=== PATIENT | male | born 1945 | race Caucasian/White ===

== ENCOUNTER → 2018-04-22 07:28 | Outpatient (CLI) | payer OTHER, SELFPAY ==
[2018-04-22 08:45] LABS: Vitamin D 25 Hydroxy (D3) 31.9 ng/mL (30.0-100.0)
[2018-04-22 09:39] LABS: HEMOLYSIS < 15 (0-50); Prostate Specific Antigen Scrn 0.483 ng/mL (0.1-4.0)
[2018-04-22 09:41] LABS: BUN Creatinine Ratio 17.5 (6-22); Blood Urea Nitrogen 14 mg/dL (9-20); Calcium 9.8 mg/dL (8.4-10.2); Carbon Dioxide 26 mmol/L (22-32); Chloride 105 mmol/L (98-107); Cholesterol 231 mg/dL (140-199); Estimated Glomerular Filt Rate > 60.0 mL/min (>60); Glucose 89 mg/dL (80-110); HDL Cholesterol 81 mg/dL (40-60); LDL Cholesterol Calculated 134 mg/dL (<100); Potassium 4.5 mmol/L (3.4-5.1); Sodium 140 mmol/L (137-145); Triglycerides 82 mg/dL (35-150)
== END ==
PROVIDERS: Visit Provider Internal Medicine
DX: Z00.00 Encounter for general adult medical examination without abnormal findings (principal); E55.9 Vitamin D deficiency, unspecified; Z12.5 Encounter for screening for malignant neoplasm of prostate
CPT/HCPCS: 36415; 80048; 80061; 82306; G0103

== ENCOUNTER → 2018-06-20 09:53 | Outpatient (CLI) | payer OTHER, SELFPAY ==
[2018-06-24 14:43] LABS: 5-HIAA, Urine 23.8 mg/24 h (< OR = 6.0); Total Volume 2500 mL
== END ==
PROVIDERS: Family Provider Internal Medicine; PCP Internal Medicine; Visit Provider Internal Medicine Hematology & Oncology
DX: C7A.019 Malignant carcinoid tumor of the small intestine, unspecified portion (principal)
CPT/HCPCS: 82570; 83497

== ENCOUNTER → 2018-10-18 09:13 | Outpatient (CLI) | payer OTHER, SELFPAY ==
--- NOTE | 2018-10-18 | DI.MRI.S_ITS ---
PROCEDURE: MR ABDOMEN WO/W CON INDICATIONS: MALIGNANT CARNIOD TUMOR UNSPECIFIED SITE TECHNIQUE: Coronal HASTE, axial 2D FLASH in- and [id number]; axial breath-hold T2 FSE. Dynamic axial VIBE during the administration of contrast; post-contrast coronal VIBE or 2D FLASH with fat saturation from the hepatic dome to the iliac crests. Optional diffusion weighted imaging and ADC may be performed. COMPARISON: [facility], CT, IVP (ABD & PEL WWO CONTRAST), 09/09/2015, 15:10. [facility], MR, ABDOMEN W&WO CONTRAST, 03/23/2016, 10:16. FINDINGS: Image quality: Excellent. Lung bases: No basal pleural effusions. Heart size is normal. Solid organs: Numerous 1 cm or less diameter, T1 hypointense, T2 hyperintense lesions, demonstrating peripheral arterial phase enhancement, as depicted on the montage image. One of these demonstrate fill-in on the delayed phase images suggesting hemangioma, although all of the others are technically indeterminate and are suspicious for hepatic metastases; continued surveillance with CT or ultrasound could be performed. Gallbladder is collapsed or surgically absent. Biliary system is non dilated. Pancreas is normal in morphology. Spleen is normal in size and enhancement. No adrenal nodules. Both kidneys demonstrate normal size and enhancement, without hydronephrosis. There is prominent dilatation of the right renal collecting system and a unchanged right staghorn calculus. Overall appearance grossly unchanged since 09/09/15 No left-sided hydronephrosis identified. Nodes and vessels: No retroperitoneal or mesenteric adenopathy by size criteria. Aorta and inferior vena cava are normal in size. Bowel and peritoneum: Unenhanced bowel loops are normal in caliber. No free fluid. Bones and soft tissues: No ventral hernias. Bone marrow is normal in overall signal. 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 Dictated by: Will Child M.D. on 10/18/2018 at 12:20 Approved by: Will Child M.D. on 10/18/2018 at 12:31
== END ==
PROVIDERS: PCP Internal Medicine; Visit Provider Internal Medicine
DX: C7A.00 Malignant carcinoid tumor of unspecified site (principal); N13.2 Hydronephrosis with renal and ureteral calculous obstruction; K76.9 Liver disease, unspecified
CPT/HCPCS: 74183

== ENCOUNTER → 2018-11-10 14:42 | Outpatient (CLI) | payer OTHER, SELFPAY ==
--- NOTE | 2018-11-10 | DI.CT.S_ITS ---
PROCEDURE: CT KIDNEY URETER BLADDER (KUB) INDICATIONS: Calculus of kidney TECHNIQUE: Noncontrast 5 mm thick sections acquired from the diaphragms to the symphysis. 5 mm thick coronal and sagittal reformats were then performed. For radiation dose reduction, the following was used: automated exposure control, adjustment of mA and/or kV according to patient size. COMPARISON: Outside Facility, RG, MRI ABDOMEN W/W/O CONTRAST, 05/14/2018, 10:12. [facility], CR, XR KUB, 09/10/2015, 14:00. [facility], MR, MR ABDOMEN WO/W CON, 10/18/2018, 9:40. [facility], CT, ABDOMEN/PELVIS WITH CONTRAST, 08/23/2015, 9:09. [facility], CT, IVP (ABD & PEL WWO CONTRAST), 09/09/2015, 15:10. FINDINGS: Image quality: Excellent. Lung bases: Lung bases are clear. Heart size is normal. Urinary system: There are multiple right renal calculi. The largest stone is within the right renal pelvis measuring 13 x 16 mm, unchanged from last exam. There is dilation of the superior calyx of the right kidney and associated right upper pole cortical atrophy. No definite renal pelvic dilation. No ureteral stone or hydroureter. No left kidney stones. Both kidneys are normal in size. Both ureters appear non-dilated throughout their expected courses. Bladder wall thickness is normal; no calcified bladder stones. Other solid organs: There is a 1.3 cm hypodense nodule in the posterior segment of the right hepatic lobe. A vague 1.4 cm nodule in the left hepatic lobe. Both were not definitely visualized. Liver is normal in size. Gallbladder is normal. Pancreas is normal in contours. Spleen is normal in size. No adrenal nodules. Peritoneum and bowel: There are surgical changes in the right lower quadrant surgical anastomosis. Unenhanced bowel loops demonstrate normal wall thickness and caliber. No free fluid or air. Nodes and vessels: No retroperitoneal or mesenteric adenopathy by size criteria. Aorta and inferior vena cava are normal in caliber. Abdominal wall: No ventral hernias. Pelvis: No free pelvic fluid. No inguinal hernias or adenopathy. Bones: No suspicious bony lesions. No vertebral body compression fractures. Degenerative changes are noted in lumbar spine. There are bilateral hip arthroplasties. IMPRESSION: 1. Multiple right renal stones are present in the right kidney with the largest one measuring 13 x 6 mm. Renal stones are overall stable. 2. There is right upper pole cortical thinning and dilation of the right upper calyx. The right main renal pelvis appears nondilated. 3. No ureteral stones. 4. Two hepatic hypodensities in the liver are present, which were not previously visualized on compression CT is. More recent comparison MRI showed multiple liver lesions in this patient with history of carcinoid, suspicious for metastasis Dictated by: Roxanne Crump M.D. on 11/10/2018 at 16:59 Approved by: Roxanne Crump M.D. on 11/10/2018 at 18:38
== END ==
PROVIDERS: PCP Internal Medicine; Visit Provider Urology
DX: N20.0 Calculus of kidney (principal); K76.9 Liver disease, unspecified
CPT/HCPCS: 74176

== ENCOUNTER 2018-11-27 13:35 | Emergency (ER) | payer OTHER, SELFPAY ==
[2018-11-27 13:55] VITALS: BP 155/73; PULSE 53; RESP 14; TEMP 36.3; O2SAT 99; BMI 24.3
[2018-11-27 14:47] LABS: Add Manual Diff / Slide Review NO; Basophils Absolute Auto 100 /uL (0-100); Basophils Percent Auto 0.8 % (0-2); Eosinophils Absolute Auto 200 /uL (0-450); Eosinophils Percent Auto 2.5 % (2-4); Hematocrit 44.5 % (41-53); Hemoglobin 14.9 g/dL (13.5-17.5); Lymphocytes Absolute Auto 2100 /uL (1100-4500); Lymphocytes Percent Auto 28.7 % (25-40); Mean Corpuscular HGB Conc 33.4 % (30-36); Mean Corpuscular Hemoglobin 31.4 PG (26-34); Mean Corpuscular Volume 94.2 fL (80-100); Monocytes Absolute Auto 600 /uL (0-900); Monocytes Percent Auto 8.7 % (3-14); Neutrophils Absolute Auto 4400 /uL (1500-7000); Neutrophils Percent Auto 59.3 % (50-75); Platelet Count 213 X10^3/uL (150-400); Red Blood Cell Count 4.73 X10^6/uL (4.5-5.9); White Blood Cell Count 7.4 X10^3/uL (4.5-11.0)
[2018-11-27 14:53] LABS: Alanine Aminotransferase 14 IU/L (21-72); Albumin 4.7 g/dL (3.5-5.0); Albumin Globulin Ratio 1.6 (1.0-2.8); Alkaline Phosphatase 47 U/L (38-126); Aspartate Aminotransferase 23 IU/L (17-59); BUN Creatinine Ratio 13.8 (6-22); Bilirubin Total 1.1 mg/dL (0.2-1.3); Blood Urea Nitrogen 11 mg/dL (9-20); Calcium 9.6 mg/dL (8.4-10.2); Carbon Dioxide 27 mmol/L (22-32); Chloride 103 mmol/L (98-107); Estimated Glomerular Filt Rate > 60.0 mL/min (>60); Globulin 2.9 g/dL (1.7-4.1); Glucose 108 mg/dL (80-110); HEMOLYSIS < 15 (0-50); Potassium 3.9 mmol/L (3.4-5.1); Sodium 139 mmol/L (137-145); Total Protein 7.6 g/dL (6.3-8.2)
--- NOTE | 2018-11-27 16:24 | DI.CT.S_ITS ---
PROCEDURE: CT ABDOMEN PELVIS W CON INDICATIONS: RLQ abd pain TECHNIQUE: After the administration of intravenous contrast, 5 mm thick sections acquired from the diaphragm to the symphysis. 5 mm coronal and sagittal reformats were acquired. For radiation dose reduction, the following was used: automated exposure control, adjustment of mA and/or kV according to patient size. COMPARISON: [facility], CT, ABDOMEN/PELVIS WITH CONTRAST, 08/23/2015, 9:09. FINDINGS: Image quality: Excellent. ABDOMEN: Lung bases: Lung bases are clear. Heart size is normal. Solid organs: Liver is normal in size and enhancement. Gallbladder is within normal limits. Biliary system is non dilated. Pancreas enhances normally. Spleen is normal in size and enhancement. No adrenal nodules. Kidneys demonstrate normal size and enhancement, without hydronephrosis. Multiple nonobstructing right renal calculi are again seen including prominent staghorn calculus in upper pole of right kidney are unchanged. Prominent right upper pole extrarenal pelvis is seen unchanged from prior study. Peritoneum and bowel: Postsurgical changes in right lower quadrant abdomen is seen, suggest clinical correlation. No evidence of bowel obstruction. No abnormal bowel wall thickening or mesenteric fat stranding. There is minor hernia. Moderate amount of fecal stasis in the colon is seen. Nodes and vessels: No retroperitoneal or mesenteric adenopathy by size criteria. Aorta and inferior vena cava are normal in size. Miscellaneous: No ventral hernias. PELVIS: Genitourinary: Bladder wall thickness is normal. Miscellaneous: No inguinal hernias or adenopathy. Bones: No suspicious bony lesions. No vertebral body compression fractures. Patient is status post bilateral total hip arthroplasty. 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 IMPRESSION: 1. Postsurgical changes in right lower quadrant abdomen. Surgical anastomosis site is intact. No contrast extravasation. No bowel obstruction. No free fluid or free air. 2. Nonobstructing right renal calculi including right upper pole kidney staghorn calculus unchanged from previous study. Suggestion of extrarenal pelvis in upper pole right kidney. No hydronephrosis. No left-sided renal stone. Dictated by: Reginald Mitchell M.D. on 11/27/2018 at 17:13 Approved by: Reginald Mitchell M.D. on 11/27/2018 at 17:21
--- NOTE | 2018-11-27 17:11 | ED_ITS ---
HPI - Male Genitourinary General Chief complaint: Urogenital-Male Stated complaint: Pain in lower right abd. x6 days Time Seen by Provider: 11/27/18 14:29 Source: patient Mode of arrival: ambulatory Limitations: no limitations History of Present Illness HPI Narrative: Patient complains of right lower quadrant abdominal pain that is been going on for about 6 days. Patient denies any nausea or vomiting. No fevers or chills. No dysuria. No hematuria. No diarrhea. Patient states that he has not had any trauma. He has an extensive surgical history, but has never been known to have adhesions in the past. Patient denies any chest pain, shortness of breath, or cough. No other complaints at this time. Related Data Allergies Allergy/AdvReac Type Severity Reaction Status Date / Time No Known Drug Allergies Allergy Verified 11/27/18 13:55 Review of Systems Constitutional Denies chills, Denies fever(s), Denies lethargy and Denies weakness Eyes Denies change in vision, Denies eye discharge, Denies irritation and Denies loss of vision ENT Ears, Nose, Mouth, and Throat: Denies change in voice, Denies neck pain and Denies sore throat Cardiovascular Denies chest pain, Denies irregular heart rhythm, Denies lightheadedness, Denies palpitations, Denies dyspnea, Denies dyspnea on exertion and Denies orthopnea Respiratory Denies cough, Denies dyspnea, Denies dyspnea on exertion and Denies wheezing Gastrointestinal Gastrointestinal: Reports abdominal pain, Denies change in bowel habits, Denies diarrhea, Denies nausea and Denies vomiting Genitourinary Denies hematuria, Denies flank pain, Denies urinary incontinence and Denies urinary urgency Musculoskeletal Denies neck pain Integumentary/Breasts Denies pruritus, Denies erythema, Denies rash and Denies wounds Neurologic Denies confusion, Denies loss of vision and Denies weakness Psychiatric Denies anxiety, Denies confusion, Denies depression, Denies homicidal ideation and Denies suicidal ideation Endocrine Denies palpitations Hematologic/Lymphatic Denies easy bruising Allergic/Immunologic Denies wheezing [facility] Medical History Urinary calculi (Acute) Surgical History H/O abdominal surgery (Acute) Social History Smoking Status: Unknown if ever smoked Social History Smoking Status: Unknown if ever smoked Exam Initial Vital Signs Initial Vital Signs: Vital Signs Temperature 97.3 F L 11/27/18 13:55 Pulse Rate 53 L 11/27/18 13:55 Respiratory Rate 14 11/27/18 13:55 Blood Pressure 155/73 H 11/27/18 13:55 Pulse Oximetry 99 11/27/18 13:55 Const General: cooperative and well developed Nutritional Appearance: well nourished Orientation: alert, awake, oriented x3 and not confused HENMT Head: normocephalic and atraumatic Ears: external ears normal and TM's normal bilaterally Nose: external nose normal and No nasal discharge Face and sinus: sinuses nontender, face symmetric, no sinus tenderness and No dry mucous membranes Mouth: oral mucosae normal and moist mucous membranes Teeth and gingiva: dentition normal Throat: tonsils normal and uvula midline Eyes General: appearance normal, both eyes and all related structures Eyelids: eyelids normal Conjunctivae: conjunctivae normal Sclera: sclerae normal Pupils: PERRL EOM: EOM intact bilaterally Neck Neck: normal visual inspection, trachea midline, No lymphadenopathy, No midline deformity and No JVD Lymphatic: No lymphedema Chest Chest: normal inspection of the chest Resp Effort & Inspection: normal respiratory effort, able to speak in complete sentences, no respiratory distress and no use of accessory muscles Auscultation: clear to auscultation bilaterally, no rales, no rhonchi and no wheezes Cardio Rate: regular rate Rhythm: regular rhythm Heart Sounds: no click, no gallops, no murmurs and no rubs Pulses: normal peripheral pulses GI Inspection: non-distended Palpation: soft, no hepatosplenomegaly, No guarding, No pulsatile mass and tender (Mild, right lower quadrant) Auscultation: normal bowel sounds Back/Spine/Pelvis Back: No CVA tenderness Cervical Spine: cervical ROM normal and No pain with cervical ROM Thoracic/Lumbar Spine: thoracic and lumbar spine normal to inspection Skin General: no rashes or lesions noted, No jaundice and No petechiae Neuro General: alert, oriented x3, gait normal and no focal motor deficits Speech: speech normal Extrem General: full ROM, no clubbing, cyanosis or edema, no pedal edema and no calf tenderness Psych Appearance: well kempt Mental Status: mental status grossly normal Attitude: cooperative Thought Content: normal and suicidality Judgment: judgment good Course Course Narrative: Patient was worked up with laboratory studies and CT scan to evaluate his right lower quadrant abdominal pain. Workup was unremarkable. Patient was feeling quite a bit better than he had been upon my evaluation in the emergency department, and continued to be without significant pain. We have discussed home management of symptoms, as well as the usual indications for return. Orders Ordered: ED Orders 11/27/18 14:10 CBC [Complete Blood Count AUTO DIFF] Stat Comprehensive Metabolic Panel Stat 11/27/18 16:24 CT abdomen pelvis w con Stat Vital Signs - 8 hr 11/27/18 13:55 Temperature 97.3 F L Pulse Rate 53 L Respiratory Rate 14 Blood Pressure 155/73 H Pulse Oximetry 99 MDM - Male Genitourinary Medical Records Attestation: I reviewed the patient's medical records. Lab Data Attestation: I reviewed the patient's lab results. Result diagrams: 11/27/18 14:10 11/27/18 14:10 Lab Results 11/27/18 11/27/18 Range/Units 14:10 14:10 WBC 7.4 (4.5-11.0) X10^3/uL RBC 4.73 (4.5-5.9) X10^6/uL Hgb 14.9 (13.5-17.5) g/dL Hct 44.5 (41-53) % MCV 94.2 (80-100) fL MCH 31.4 (26-34) PG MCHC 33.4 (30-36) % RDW 13.0 (11.6-14.8) % Plt Count 213 (150-400) X10^3/uL Neut % (Auto) 59.3 (50-75) % Lymph % (Auto) 28.7 (25-40) % [place] % (Auto) 8.7 (3-14) % Eos % (Auto) 2.5 (2-4) % Baso % (Auto) 0.8 (0-2) % Neut # (Auto) 4400 (8819-7532) /uL Lymph # (Auto) 2100 (7133-5749) /uL [place] # (Auto) 600 (0-900) /uL Eos # (Auto) 200 (0-450) /uL Baso # (Auto) 100 (0-100) /uL Sodium 139 (137-145) mmol/L Potassium 3.9 (3.4-5.1) mmol/L Chloride 103 (98-107) mmol/L Carbon Dioxide 27 (22-32) mmol/L BUN 11 (9-20) mg/dL Creatinine 0.80 (0.66-1.25) mg/dL Estimated GFR > 60.0 (>60) mL/min BUN/Creatinine Ratio 13.8 (6-22) Glucose 108 (80-110) mg/dL Calcium 9.6 (8.4-10.2) mg/dL Total Bilirubin 1.1 (0.2-1.3) mg/dL AST 23 (17-59) IU/L ALT 14 L (21-72) IU/L Alkaline Phosphatase 47 (38-126) U/L Total Protein 7.6 (6.3-8.2) g/dL Albumin 4.7 (3.5-5.0) g/dL Globulin 2.9 (1.7-4.1) g/dL Albumin/Globulin Ratio 1.6 (1.0-2.8) Urine Dip Bedside Urine Glucose Negative Bedside Urine Bilirubin - Negative Bedside Urine Ketone - Negative Urine Specific [place] 1.015 Bedside Urine Occult Blood - Negative Bedside Urine pH 6.5 Bedside Urine Protein - Negative Bedside Urine Urobilinogen - Negative Bedside Urine Nitrite - Negative Bedside Urine Leukocytes - Negative Esterase Imaging Data CT scan - abdomen: Radiologist's impression: PROCEDURE: CT ABDOMEN PELVIS W CON INDICATIONS: RLQ abd pain TECHNIQUE: After the administration of intravenous contrast, 5 mm thick sections acquired from the diaphragm to the symphysis. 5 mm coronal and sagittal reformats were acquired. For radiation dose reduction, the following was used: automated exposure control, adjustment of mA and/or kV according to patient size. COMPARISON: [facility], CT, ABDOMEN/PELVIS WITH CONTRAST, 08/23/2015, 9:09. FINDINGS: Image quality: Excellent. ABDOMEN: Lung bases: Lung bases are clear. Heart size is normal. Solid organs: Liver is normal in size and enhancement. Gallbladder is within normal limits. Biliary system is non dilated. Pancreas enhances normally. Spleen is normal in size and enhancement. No adrenal nodules. Kidneys demonstrate normal size and enhancement, without hydronephrosis. Multiple nonobstructing right renal c alculi are again seen including prominent staghorn calculus in upper pole of right kidney are unchanged. Prominent right upper pole extrarenal pelvis is seen unchanged from prior study. Peritoneum and bowel: Postsurgical changes in right lower quadrant abdomen is seen, suggest clinical correlation. No evidence of bowel obstruction. No abnormal bowel wall thickening or mesenteric fat stranding. There is minor hernia. Moderate amount of fecal stasis in the colon is seen. Nodes and vessels: No retroperitoneal or mesenteric adenopathy by size criteria. Aorta and inferior vena cava are normal in size. Miscellaneous: No ventral hernias. PELVIS: Genitourinary: Bladder wall thickness is normal. Miscellaneous: No inguinal hernias or adenopathy. Bones: No suspicious bony lesions. No vertebral body compression fractures. Patient is status post bilateral total hip arthroplasty. 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 IMPRESSION: 1. Postsurgical changes in right lower quadrant abdomen. Surgical anastomosis site is intact. No contrast extravasation. No bowel obstruction. No free fluid or free air. 2. Nonobstructing right renal calculi including right upper pole kidney staghorn calculus unchanged from previous study. Suggestion of extrarenal pelvis in upper pole right kidney. No hydronephrosis. No left-sided renal stone. Dictated by: Reginald Mitchell M.D. on 11/27/2018 at 17:13 Approved by: Reginald Mitchell M.D. on 11/27/2018 at 17:21 Discharge Plan Departure Patient Disposition: Home Clinical Impression: Abdominal pain Qualifiers: Abdominal location: right lower quadrant Qualified Code(s): R10.31 - Right lower quadrant pain Discharge Date/Time: 11/27/18 17:48 Interventions: ED Discharge Assessment Last Done: 11/27/18 17:48 Instructions: DI for Abdominal Pain-Adult Activity Restrictions/Additional Instructions: Your labs and CT look good. It is possible that your pain is due to scar tissue from your previous surgeries. No emergent or serious cause of your pain has been found at this time. If the pain continues beyond this next week, please follow up with your primary doctor. Referrals: Lluvia Kirk MD [Primary Care Provider] -
[2018-11-27 17:36] VITALS: BP 138/79; PULSE 54; RESP 15; O2SAT 98
== END 2018-11-27 17:48 | disposition home or self-care (01) ==
PROVIDERS: Emergency Provider Emergency Medicine; PCP Internal Medicine
DX: R10.31 Right lower quadrant pain (principal)
CPT/HCPCS: 36591; 74177; 80053; 81003; 85025; 99282; 99284; Q9967

== ENCOUNTER → 2018-12-01 10:49 | Outpatient (CLI) | payer OTHER, SELFPAY ==
--- NOTE | 2018-12-01 | DI.CT.S_ITS ---
PROCEDURE: CT KIDNEY URETER BLADDER (KUB) INDICATIONS: RIGHT LOWER QUADRANT PAIN TECHNIQUE: Noncontrast 5 mm thick sections acquired from the diaphragms to the symphysis. 5 mm thick coronal and sagittal reformats were then performed. For radiation dose reduction, the following was used: automated exposure control, adjustment of mA and/or kV according to patient size. COMPARISON: [facility], CT, CT KIDNEY URETER BLADDER (KUB), 11/10/2018, 14:45. FINDINGS: Image quality: Excellent. Lung bases: Lung bases are clear. Heart size is normal. Urinary system: Both kidneys are unchanged in size. No new kidney stones. No hydronephrosis or perinephric fat stranding. Both ureters appear non-dilated throughout their expected courses. Bladder wall thickness is normal; no calcified bladder stones. Other solid organs: Liver is normal in size, but there are multiple subtle low density rounded and ovoid liver lesions ranging in size from 8 mm to 2 cm, better visualized than on the most recent comparison noncontrast CT scanning 11/10/18. This likely is not enlarged but rather are better visualized by technique utilized. Intrahepatic and extrahepatic biliary distention is not seen. Gallbladder appears normal. Pancreas is normal in contours. Spleen is normal in size. No adrenal nodules. Peritoneum and bowel: Unenhanced bowel loops demonstrate normal wall thickness and caliber. No free fluid or air. Nodes and vessels: No retroperitoneal or mesenteric adenopathy by size criteria. Aorta and inferior vena cava are normal in caliber. Abdominal wall: No ventral hernias. Pelvis: No free pelvic fluid. No inguinal hernias or adenopathy. Bones: No suspicious bony lesions. No vertebral body compression fractures. IMPRESSION: Quality of visualization is somewhat limited by absence of intravenous contrast. The study does not appear to have significantly changed considering differences in technique from the comparison similar study 11/10/18. No contrast was utilized during that examination also. Urinary tract stones are stable over time within the right kidney, with reference to the study from earlier this month. As was previously the case the collecting system of the upper half of the right kidney appears abnormally dilated, likely due to infundibular impingement by the calculi present. This has not worsened. Within the abdomen and pelvis no solid mass lesion is seen in this patient with reported prior history of carcinoid tumor. Dictated by: Russell Chavez M.D. on 12/01/2018 at 13:17 Approved by: Russell Chavez M.D. on 12/01/2018 at 13:25
== END ==
PROVIDERS: PCP Internal Medicine; Visit Provider Internal Medicine
DX: C7A.00 Malignant carcinoid tumor of unspecified site (principal); C78.7 Secondary malignant neoplasm of liver and intrahepatic bile duct; R10.31 Right lower quadrant pain; N20.0 Calculus of kidney
CPT/HCPCS: 74176

== ENCOUNTER → 2019-02-20 08:05 | Outpatient (CLI) | payer OTHER, SELFPAY ==
--- NOTE | 2019-02-20 | DI.MRI.S_ITS ---
PROCEDURE: MR ABDOMEN WO/W CON INDICATIONS: carcinoid tumor of small intestine TECHNIQUE: Coronal HASTE, axial 2D FLASH in- and [id number]; axial breath-hold T2 FSE. Dynamic axial VIBE during the administration of contrast; post-contrast coronal VIBE or 2D FLASH with fat saturation from the hepatic dome to the iliac crests. Optional diffusion weighted imaging and ADC may be performed. COMPARISON: [facility], CT, CT KIDNEY URETER BLADDER (KUB), 12/01/2018, 10:54. [facility], MR, MR ABDOMEN WO/W CON, 10/18/2018, 9:40. FINDINGS: Image quality: Excellent. Lung bases: No basal pleural effusions. Heart size is normal. Solid organs: Numerous lesions throughout right and left liver lobes of varying sizes demonstrate restricted diffusion and peripheral enhancement on arterial phase of contrast one lesion in the right lateral lobe demonstrates classic enhancement of a hemangioma. The others demonstrate enhancement pattern more consistent with metastatic disease. Size of lesions have slightly increased. For example one of the largest in the posterior right hepatic lobe on image 22 series 17 measures 1.7 cm, previously 1.2 cm. In one of the larger lesions in the caudal aspect of the right liver lobe measures 1.7 cm, previously 1.4 cm. Gallbladder is decompressed. Biliary system is non dilated. Pancreas is normal in morphology. Spleen is normal in size and enhancement. No adrenal nodules. There is persistent significant right upper pole hydronephrosis with normal appearance of the right lower pole collecting system. Right upper pole calyceal calcification is stable size and position. Left kidney is normal. Nodes and vessels: No retroperitoneal or mesenteric adenopathy by size criteria. Aorta and inferior vena cava are normal in size. Bowel and peritoneum: Unenhanced bowel loops are normal in caliber. No free fluid. Bones and soft tissues: No ventral hernias. Bone marrow is normal in overall signal. IMPRESSION: 1. Slight interval increase in size of numerous suspicious liver lesions suggestive of metastatic disease. 2. Stable right upper pole hydronephrosis and intrarenal calcification. 3. No other MR evidence of metastatic disease in the abdomen outside the liver. Dictated by: Griselda Denny M.D. on 02/20/2019 at 14:25 Approved by: Griselda Denny M.D. on 02/20/2019 at 14:38
== END ==
PROVIDERS: PCP Internal Medicine; Visit Provider Internal Medicine Hematology & Oncology
DX: C7A.019 Malignant carcinoid tumor of the small intestine, unspecified portion (principal); K76.9 Liver disease, unspecified; N13.30 Unspecified hydronephrosis; N20.0 Calculus of kidney
CPT/HCPCS: 74183; A9579

== ENCOUNTER → 2020-07-24 14:03 | Outpatient (CLI) | payer OTHER, SELFPAY ==
[2020-07-24 16:14] LABS: Add Manual Diff / Slide Review NO; Basophils Absolute Auto 0 /uL (0-100); Basophils Percent Auto 0.4 % (0-2); Eosinophils Absolute Auto 100 /uL (0-450); Eosinophils Percent Auto 2.7 % (2-4); Hematocrit 33.4 % (41-53); Hemoglobin 11.6 g/dL (13.5-17.5); Lymphocytes Absolute Auto 1300 /uL (1100-4500); Lymphocytes Percent Auto 26.9 % (25-40); Mean Corpuscular HGB Conc 34.6 % (30-36); Mean Corpuscular Hemoglobin 29.8 PG (26-34); Mean Corpuscular Volume 86.3 fL (80-100); Monocytes Absolute Auto 700 /uL (0-900); Monocytes Percent Auto 13.9 % (3-14); Neutrophils Absolute Auto 2800 /uL (1500-7000); Neutrophils Percent Auto 56.1 % (50-75); Platelet Count 186 X10^3/uL (150-400); Red Blood Cell Count 3.87 X10^6/uL (4.5-5.9); Red Cell Distribution Width 13.2 % (11.6-14.8)
[2020-07-24 16:18] LABS: Alanine Aminotransferase 52 IU/L (<50); Albumin 4.2 g/dL (3.5-5.0); Albumin Globulin Ratio 1.2 (1.0-2.8); Alkaline Phosphatase 120 U/L (38-126); Aspartate Aminotransferase 54 IU/L (17-59); BUN Creatinine Ratio 17.5 (6-22); Bilirubin Total 0.3 mg/dL (0.2-1.3); Bilirubin Unconjugated 0.3 mg/dL (0.0-1.1); Blood Urea Nitrogen 14 mg/dL (9-20); Calcium 9.3 mg/dL (8.4-10.2); Carbon Dioxide 24 mmol/L (22-32); Chloride 104 mmol/L (98-107); Estimated Glomerular Filt Rate > 60.0 mL/min (>60); Globulin 3.4 g/dL (1.7-4.1); Glucose 109 mg/dL (80-110); HEMOLYSIS < 15 (0-50); Potassium 3.9 mmol/L (3.4-5.1); Sodium 134 mmol/L (137-145); Total Protein 7.6 g/dL (6.3-8.2)
== END ==
PROVIDERS: PCP Internal Medicine; Referring Provider Internal Medicine Hematology & Oncology; Visit Provider Internal Medicine Hematology & Oncology
DX: R10.813 Right lower quadrant abdominal tenderness (principal); G20 Parkinson's disease; Z51.89 Encounter for other specified aftercare; C7B.02 Secondary carcinoid tumors of liver
CPT/HCPCS: 36415; 80053; 80076; 85025

== ENCOUNTER → 2020-08-20 15:54 | Outpatient (CLI) | payer OTHER, SELFPAY ==
[2020-08-20 16:53] LABS: BUN Creatinine Ratio 17.6 (6-22); Blood Urea Nitrogen 13 mg/dL (9-20); Calcium 9.4 mg/dL (8.4-10.2); Carbon Dioxide 27 mmol/L (22-32); Chloride 103 mmol/L (98-107); Estimated Glomerular Filt Rate > 60.0 mL/min (>60); Glucose 106 mg/dL (80-110); HEMOLYSIS < 15 (0-50); Potassium 4.1 mmol/L (3.4-5.1); Sodium 135 mmol/L (137-145)
== END ==
PROVIDERS: PCP Internal Medicine; Referring Provider Internal Medicine Hematology & Oncology; Visit Provider Internal Medicine Hematology & Oncology
DX: R10.813 Right lower quadrant abdominal tenderness (principal); Z51.89 Encounter for other specified aftercare; G20 Parkinson's disease; C7B.02 Secondary carcinoid tumors of liver; Z51.11 Encounter for antineoplastic chemotherapy
CPT/HCPCS: 36415; 80048

== ENCOUNTER → 2020-08-22 10:57 | Outpatient (CLI) | payer OTHER, SELFPAY ==
--- NOTE | 2020-08-22 11:54 | DI.CT.S_ITS ---
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 5 mm thick coronal and sagittal reformats were performed. For radiation dose reduction, the following was used: automated exposure control, adjustment of mA and/or kV according to patient size. COMPARISON: [facility], MR, MR ABDOMEN WO/W CON, 02/20/2019, 8:26. CT, IVP (ABD & PEL WWO CONTRAST), 09/09/2015, 15:10. [facility], CT, ABDOMEN/PELVIS WITH CONTRAST, 08/23/2015, 9:09. [facility], CT, CT KIDNEY URETER BLADDER (KUB), 12/01/2018, 10:54. [facility], CT, CT KIDNEY URETER BLADDER (KUB), 11/10/2018, 14:45. [facility], CT, CT ABDOMEN PELVIS W CON, 11/27/2018, 16:39. FINDINGS: Image quality: Excellent. ABDOMEN: Lung bases: There are nodules or nodular infiltrates in lung bases bilaterally. Heart size is normal. Small hiatal hernia. Solid organs: There are multiple hepatic hypodensities, compatible with hepatic metastases. Compared with the last exam on 11/27/2018, liver lesions are enlarged. For example, a 0.8 cm nodule in segment seen on the last exam now measures 1.6 cm. There are multiple new lesions. A floor representative lesion in the left hepatic lobe measures 1.2 cm (series 2, image 19). A floor representative lesion in the posterior segment of the right hepatic lobe measures 1.5 cm (series 2, image 13). Gallbladder is normal. Biliary system is non-dilated. Pancreas enhances normally. Spleen is normal in size and enhancement. No adrenal nodules. There are multiple scattered ground stones in right kidney. The largest measures 11 x 15 mm. There is calyceal dilation involving the upper pole of the right kidney. There is cortical thinning in the superior pole of the right kidney. Kidneys are normal in size and enhancement. Peritoneum and bowel: Stomach, small bowel, and colon loops are normal in caliber. There are postsurgical changes in the right lower quadrant involving small intestine. There is focal thickening and tethering in small bowel adjacent to the surgical suture. There is a large amount of stool in colon. No free fluid or air. Nodes and vessels: No retroperitoneal or mesenteric adenopathy. Aorta and inferior vena cava are normal in caliber. Miscellaneous: No ventral hernias. PELVIS: Genitourinary: Bladder wall thickness is normal. Miscellaneous: No inguinal hernias or adenopathy. Bones: No suspicious bony lesions. No vertebral body compression fractures. Degenerative changes in lumbar spine. Bilateral hip arthroplasties. IMPRESSION: 1. Interval worsening of hepatic metastases. 2. Nodules or nodular infiltrates at lung bases bilaterally. Although the findings could be infectious or inflammatory in etiology, in this patient with metastatic carcinoid tumor, pulmonary metastasis cannot be excluded. Recommend chest CT with contrast for further evaluation. 3. 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 There is dilation of the right upper pole moiety. 4. Postsurgical changes are present in the right lower quadrant involving small intestine. There is focal thickening and tethering in small bowel adjacent to the surgical suture. Differential diagnoses are artifact versus recurrent cancer. Dictated by: Roxanne Crump M.D. on 08/22/2020 at 16:37 Approved by: Roxanne Crump M.D. on 08/22/2020 at 17:25
== END ==
PROVIDERS: PCP Internal Medicine; Referring Provider Internal Medicine; Visit Provider Internal Medicine
DX: C7A.019 Malignant carcinoid tumor of the small intestine, unspecified portion (principal); C78.7 Secondary malignant neoplasm of liver and intrahepatic bile duct; R91.8 Other nonspecific abnormal finding of lung field; K44.9 Diaphragmatic hernia without obstruction or gangrene; N20.0 Calculus of kidney
CPT/HCPCS: 74177; Q9967

== ENCOUNTER → 2021-02-18 13:33 | Outpatient (CLI) | payer OTHER, SELFPAY ==
[2021-02-18 14:52] LABS: BUN Creatinine Ratio 9.2 (6-22); Blood Urea Nitrogen 9 mg/dL (9-20); Calcium 9.4 mg/dL (8.4-10.2); Carbon Dioxide 25 mmol/L (22-32); Chloride 107 mmol/L (98-107); Estimated Glomerular Filt Rate > 60.0 mL/min (>60); Glucose 102 mg/dL (80-110); HEMOLYSIS < 15 (0-50); Potassium 4.4 mmol/L (3.4-5.1); Sodium 137 mmol/L (137-145)
== END ==
PROVIDERS: PCP Internal Medicine; Referring Provider Internal Medicine Hematology & Oncology; Visit Provider Internal Medicine Hematology & Oncology
DX: C7A.019 Malignant carcinoid tumor of the small intestine, unspecified portion (principal); R10.813 Right lower quadrant abdominal tenderness; Z51.89 Encounter for other specified aftercare; G20 Parkinson's disease; C7B.02 Secondary carcinoid tumors of liver; Z51.11 Encounter for antineoplastic chemotherapy; R53.0 Neoplastic (malignant) related fatigue; E44.0 Moderate protein-calorie malnutrition; R05 Cough; Z11.59 Encounter for screening for other viral diseases; Z92.21 Personal history of antineoplastic chemotherapy
CPT/HCPCS: 36415; 80048

== ENCOUNTER → 2021-02-19 10:49 | Outpatient (CLI) | payer OTHER, SELFPAY ==
--- NOTE | 2021-02-19 | DI.CT.S_ITS ---
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 1 mm thick dynamic expiratory images acquired through the upper, mid, and lower lungs. 1.0 mm thick axial sections acquired from the nixon to the posterior costophrenic angles in the prone end-inspiration position. For radiation dose reduction, the following was used: automated exposure control, adjustment of mA and/or kV according to patient size. COMPARISON: [facility], CT, CT ABDOMEN PELVIS W CON, 08/22/2020, 12:01. FINDINGS: Image quality: Excellent. Lungs: There is a minimal amount of interstitial and interlobular septal thickening at both lung bases, but predominant resolution of previous patchy consolidative changes medially at the right lung base and in the caudal lingula. No new suspicious masses. No consolidations or suspicious ground-glass opacities. Pleura: No pleural effusions or pneumothorax. Mediastinum: Heart size is normal. No pericardial effusion. Thoracic aorta and central pulmonary arteries are normal in size. Esophagus is normal in caliber. Bones and chest wall: No suspicious bony lesions. No vertebral body compression fractures. Normal thyroid gland. Abdomen: Noncontrast imaging of the upper abdomen demonstrates a heterogeneous appearance to the liver and superior pole of the right kidney. Please see separately dictated CT abdomen pelvis report. IMPRESSION: 1. Interval resolution of patchy nodules and nodular infiltrates of both lung bases seen previously. 2. No evidence of suspicious mass, nodule, or pleural effusion in the lungs to suggest metastatic disease. 3. No adenopathy. 4. Heterogeneity of the upper abdominal organs is incompletely evaluated on this study. Please see separately dictated CT abdomen pelvis report. Dictated by: Griselda Denny M.D. on 02/19/2021 at 15:29 Approved by: Griselda Denny M.D. on 02/19/2021 at 15:39
--- NOTE | 2021-02-19 12:08 | DI.CT.S_ITS ---
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 Coronal and sagittal reformats were performed. For radiation dose reduction, the following was used: automated exposure control, adjustment of mA and/or kV according to patient size. COMPARISON:[facility], CT, CT ABDOMEN PELVIS W CON, 11/27/2018, 16:39. [facility], MR, MR ABDOMEN WO/W CON, 02/20/2019, 8:26. [facility], CT, CT ABDOMEN PELVIS W CON, 08/22/2020, 12:01. FINDINGS: Image quality: Excellent. Lung bases: Interval clearance of prior nodular consolidation. Heart: No significant findings. ABDOMEN: Liver: Several ill-defined rounded masses of varying densities and degrees of enhancement in the caudate lobe, right liver lobe and questionably in the left anterior segment IV. The liver demonstrates a lobulated contour. 1 of the largest enhancing masses measures 2.7 cm in segment 7/8. An irregular hypodense mass in the periphery segment 5/6 measures about 3.2 cm, previously about 2.5 cm. Other lesions are fairly stable in size and number, a few have increased (segment V two/32, measuring 2.0 cm, previously 1.7 cm.) Gallbladder: Decompressed Biliary ducts: Nondilated. Pancreas: Normal. Spleen: Normal size. Adrenal Glands: No nodules. Kidneys and Ureters: Normal left kidney. Large right upper pole chronic hydronephrosis containing dominant upper pole calyx calcification measuring 1.4 cm. Right kidney lower pole collecting system is normal. Both kidneys uptake and excrete IV contrast symmetrically. Stomach and Bowel: The stomach and proximal small bowel appear normal. In the right lower quadrant, there is a moderate length segment of circumferential small bowel wall thickening adjacent to a suture line of an anastomosis. There is no pre stenotic bowel dilatation. The terminal ileum appears normal. There is no functional bowel obstruction and there is solid stool present in the colon. No inflammatory changes. There is irregular nodular thickening in the small bowel mesentery, but without significant changes. Peritoneum: No abnormal intraperitoneal fluid. No free air. Ventral Wall: No hernia. Abdominal Nodes: No retroperitoneal or mesenteric adenopathy by size criteria. Vessels: Aorta and inferior vena cava are normal in size. Mild abdominal aortic atherosclerotic calcification. PELVIS: Pelvic Organs: Normal size prostate gland. Bladder: No calculi or wall thickening. Partial obscuration by bilateral hip arthroplasty beam hardening artifact. Pelvic Nodes: No enlarged lymph nodes. Miscellaneous: No inguinal hernias are seen. Bones: Bilateral hip arthroplasties. Moderate scattered degenerative disc and endplate changes in the spine. No suspicious bone lesions. IMPRESSION: 1. Slight increase in size of multiple hepatic lesions, but no significant increase in number. 2. Small bowel wall thickening in the right lower quadrant adjacent to a prior area of resection and reanastomosis. This does not appear to be obstructive and a nodular mesenteric thickening is stable. Continued attention to this area is recommended. Alternatively, this may be secondary to inflammatory bowel changes and correlation with history is recommended. 3. Right upper pole hydronephrosis and calyceal calcification, unchanged. Dictated by: Griselda Denny M.D. on 02/19/2021 at 15:39 Approved by: Griselda Denny M.D. on 02/19/2021 at 15:59
== END ==
PROVIDERS: PCP Internal Medicine; Referring Provider Internal Medicine Hematology & Oncology; Visit Provider Internal Medicine Hematology & Oncology
DX: C7A.019 Malignant carcinoid tumor of the small intestine, unspecified portion (principal); N13.39 Other hydronephrosis; K76.9 Liver disease, unspecified
CPT/HCPCS: 71250; 74177

== ENCOUNTER → 2021-08-27 09:12 | Outpatient (CLI) | payer MEDICARE, SELFPAY ==
[2021-08-27 10:03] LABS: BUN Creatinine Ratio 12.7 (6-22); Blood Urea Nitrogen 13 mg/dL (9-20); Carbon Dioxide 28 mmol/L (22-32); Chloride 105 mmol/L (98-107); Estimated Glomerular Filt Rate > 60.0 mL/min (>60); Glucose 87 mg/dL (80-110); HEMOLYSIS < 15 (0-50); Potassium 4.2 mmol/L (3.4-5.1); Sodium 139 mmol/L (137-145)
--- NOTE | 2021-08-27 10:35 | DI.CT.S_ITS ---
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 Coronal and sagittal reformats were performed. For radiation dose reduction, the following was used: automated exposure control, adjustment of mA and/or kV according to patient size. COMPARISON: [facility], CT, CT ABDOMEN PELVIS W CON, 02/19/2021, 11:56. FINDINGS: Image quality: Excellent. Lung bases: Unremarkable. Heart: No significant findings. ABDOMEN: Liver: Increased size and number of hepatic lesions, compatible with worsening metastatic disease. Enlargement of liver, measuring 19 cm in craniocaudal dimension. Reference right hepatic lesion: August 27: 5.5 x 4.8 cm (2-15); previously measuring up to 2.5 cm Gallbladder: Unremarkable. Biliary ducts: The common bile duct measures 8.2 mm. Pancreas: No contour deforming mass. The pancreatic duct is upper limits of normal, measuring up to 3.3 mm. Spleen: Unremarkable. Adrenal Glands: Unremarkable. Kidneys and Ureters: Normal left kidney. Redemonstrated right upper pole parapelvic hypoattenuating lesions, most consistent with cysts. Persistent renal calcifications/nephrolithiasis, measuring up to 1.4 cm. Stomach and Bowel: No evidence of intestinal obstruction. Moderate stool burden in the descending colon through anorectal region. Peritoneum: No abnormal intraperitoneal fluid. No free air. Ventral Wall: No hernia. Abdominal Nodes: No retroperitoneal or mesenteric adenopathy by size criteria. Vessels: Aorta and inferior vena cava are normal in size. PELVIS: Pelvic Organs: Prostatomegaly. Bladder: Not well distended. Pelvic Nodes: No enlarged lymph nodes. Miscellaneous: No inguinal hernias are seen. Bones: Multifocal degenerative change. No suspicious osseous lesion. Bilateral hip arthroplasties are again seen, causes beam hardening artifact. IMPRESSION: 1. Increased size and number of hepatic lesions, compatible with worsening metastatic disease. Dictated by: Magan Ricks M.D. on 08/27/2021 at 11:42 Approved by: Magan Ricks M.D. on 08/27/2021 at 11:56
== END ==
PROVIDERS: PCP Internal Medicine; Referring Provider Internal Medicine Hematology & Oncology; Visit Provider Internal Medicine Hematology & Oncology
DX: C7B.02 Secondary carcinoid tumors of liver; C7A.019 Malignant carcinoid tumor of the small intestine, unspecified portion
CPT/HCPCS: 36415; 74177; 80048; Q9967

== ENCOUNTER → 2021-09-30 09:12 | Outpatient (CLI) | payer MEDICARE, SELFPAY ==
--- NOTE | 2021-09-30 09:22 | DI.CT.S_ITS ---
PROCEDURE: CT ABDOMEN WWO PELVIS W INDICATIONS: EVALUTATE LIVER METS TECHNIQUE: After the administration of oral contrast, 5 mm thick sections acquired from the diaphragms to the iliac crests. After the administration of intravenous contrast, 5 mm thick sections acquired from the diaphragms to the symphysis. 5 mm thick coronal and sagittal reformats were acquired. For radiation dose reduction, the following was used: automated exposure control, adjustment of mA and/or kV according to patient size. COMPARISON: [facility], CT, CT ABDOMEN PELVIS W CON, 08/22/2020, 12:01. [facility], CT, CT ABDOMEN PELVIS W CON, 02/19/2021, 11:56. [facility], CT, CT ABDOMEN PELVIS W CON, 08/27/2021, 10:37. FINDINGS: Image quality: Excellent. ABDOMEN: Lung bases: Lung bases are clear. Heart size is normal. Solid organs: There are multiple hepatic masses, progressively increased in size. Reference lesions are listed in the following: Mass 1: 5.6 x 5.2 cm; segment 6; previously 5.2 x 5.0 cm. Mass 2: 6.2 x 4.8 cm; segment 6; previously 5.2 x 4.0 cm. Numerous smaller lesions are present. Gallbladder is normal . Biliary system is non-dilated. Pancreas enhances normally. Spleen is normal in size and enhancement. No adrenal nodules. Both kidneys are normal in size. There is a 14 x 12 mm stone in the right renal pelvis. There a large parapelvic cyst in the superior pole of the right kidney measuring 5.2 x 5.6 x 6.0 cm. Right renal cortical thinning. Bowel and peritoneum: Stomach, small and large bowel loops are normal in caliber and wall thickness. No free fluid or air. Nodes and vessels: There is periportal lymphadenopathy, consistent with metastasis. The largest lymph node measures 1.5 x 2.2 cm anterior to the portal confluence. Compared to the last exam, there is no significant change. Aorta and inferior vena are normal in caliber. Miscellaneous: No ventral hernias. PELVIS: Genitourinary: Bladder wall thickness is normal. Miscellaneous: No inguinal hernias or adenopathy. Bones: No suspicious bony lesions. No vertebral body compression fractures. Scoliosis. Severe degenerative changes in lumbar spine. Bilateral hip arthroplasties. IMPRESSION: 1. Mild progression of liver metastasis. 2. No significant change in periportal lymphadenopathy. 3. Large parapelvic cyst in right kidney and a 14 x 12 mm stone. Dictated by: Roxanne Crump M.D. on 09/30/2021 at 16:52 Approved by: Roxanne Crump M.D. on 09/30/2021 at 17:11
[2021-09-30 10:35] LABS: Blood Urea Nitrogen 15 mg/dL (9-20); Estimated Glomerular Filt Rate > 60 mL/min (>60)
== END ==
PROVIDERS: Surgery; PCP Internal Medicine
DX: N28.1 Cyst of kidney, acquired; N20.0 Calculus of kidney; R59.0 Localized enlarged lymph nodes; C7A.019 Malignant carcinoid tumor of the small intestine, unspecified portion; C7B.02 Secondary carcinoid tumors of liver
CPT/HCPCS: 36415; 74178; 82565; 84520; Q9967

== ENCOUNTER → 2021-11-18 14:58 | Outpatient (CLI) | payer MEDICARE, SELFPAY ==
[2021-11-18 16:17] LABS: Add Manual Diff / Slide Review NO; Basophils Absolute Auto 0 /uL (0-100); Basophils Percent Auto 0.7 % (0-2); Eosinophils Absolute Auto 200 /uL (0-450); Eosinophils Percent Auto 3.7 % (2-4); Hemoglobin 12.2 g/dL (13.5-17.5); Lymphocytes Absolute Auto 1500 /uL (1100-4500); Lymphocytes Percent Auto 31.2 % (25-40); Mean Corpuscular HGB Conc 33.9 % (30-36); Mean Corpuscular Hemoglobin 31.6 PG (26-34); Mean Corpuscular Volume 93.3 fL (80-100); Monocytes Absolute Auto 500 /uL (0-900); Monocytes Percent Auto 10.5 % (3-14); Neutrophils Absolute Auto 2500 /uL (1500-7000); Neutrophils Percent Auto 53.9 % (50-75); Platelet Count 186 X10^3/uL (150-400); Red Blood Cell Count 3.86 X10^6/uL (4.5-5.9); Red Cell Distribution Width 15.3 % (11.6-14.8); White Blood Cell Count 4.7 X10^3/uL (4.5-11.0)
[2021-11-18 16:51] LABS: INR 1.2 (0.9-1.3); Prothrombin Time 13.2 SECONDS (10.1-12.7)
[2021-11-18 17:25] LABS: Alanine Aminotransferase 27 IU/L (<50); Albumin 3.8 g/dL (3.5-5.0); Albumin Globulin Ratio 1.5 (1.0-2.8); Alkaline Phosphatase 71 U/L (38-126); Aspartate Aminotransferase 43 IU/L (17-59); BUN Creatinine Ratio 14.7 (6-22); Bilirubin Total 0.7 mg/dL (0.2-1.3); Bilirubin Unconjugated 0.4 mg/dL (0.0-1.1); Blood Urea Nitrogen 17 mg/dL (9-20); Calcium 8.7 mg/dL (8.4-10.2); Carbon Dioxide 26 mmol/L (22-32); Chloride 104 mmol/L (98-107); Estimated Glomerular Filt Rate > 60 mL/min (>60); Globulin 2.6 g/dL (1.7-4.1); Glucose 148 mg/dL (80-110); HEMOLYSIS < 15 (0-50); Potassium 4.3 mmol/L (3.4-5.1); Sodium 137 mmol/L (137-145); Total Protein 6.4 g/dL (6.3-8.2)
[2021-11-19 06:31] LABS: Alpha Fetoprotein <0.9 ng/mL (0.0-8.4)
== END ==
PROVIDERS: PCP Internal Medicine; Referring Provider Internal Medicine Hematology & Oncology; Visit Provider Internal Medicine Hematology & Oncology
DX: C7A.019 Malignant carcinoid tumor of the small intestine, unspecified portion (principal); R10.813 Right lower quadrant abdominal tenderness; Z51.89 Encounter for other specified aftercare; G20 Parkinson's disease; C7B.02 Secondary carcinoid tumors of liver; Z51.11 Encounter for antineoplastic chemotherapy; R53.0 Neoplastic (malignant) related fatigue; E44.0 Moderate protein-calorie malnutrition; Z11.59 Encounter for screening for other viral diseases; Z92.21 Personal history of antineoplastic chemotherapy; R05.1 Acute cough
CPT/HCPCS: 36415; 80053; 80076; 82105; 85025; 85610